=== PATIENT | male | born 1975 | race Caucasian/White ===

== ENCOUNTER 2019-04-02 05:55 | Day surgery (SDC) | payer OTHER, SELFPAY | END 2019-04-02 08:15 | disposition home or self-care (01) | PROVIDERS: Family Provider Nurse Practitioner; Visit Provider Specialist | DX: G56.01 Carpal tunnel syndrome, right upper limb (principal); I10 Essential (primary) hypertension; F32.9 Major depressive disorder, single episode, unspecified; Z82.49 Family history of ischemic heart disease and other diseases of the circulatory system; Z83.3 Family history of diabetes mellitus | CPT/HCPCS: 64721; J0690; J2001; J2704; J3490 ==

== ENCOUNTER → 2020-03-01 15:52 | Outpatient (BNVA) | payer SELFPAY | PROVIDERS: Family Provider Nurse Practitioner; PCP Nurse Practitioner; Visit Provider Nurse Practitioner Family | DX: Z20.828 Contact with and (suspected) exposure to other viral communicable diseases (principal) | CPT/HCPCS: 87635 ==

== ENCOUNTER 2020-12-14 12:09 | Outpatient (CLI) | payer SELFPAY ==
[2020-12-14 12:22] LABS: D Dimer 0.22 ug/mIFEU (0-0.59)
== END 2020-12-14 12:10 | disposition home or self-care (01) ==
PROVIDERS: PCP Nurse Practitioner; Visit Provider Nurse Practitioner Family
DX: R06.02 Shortness of breath (principal)
CPT/HCPCS: 85378

== ENCOUNTER 2024-06-04 07:16 | Day surgery (SDC) | payer OTHER, SELFPAY ==
[2024-06-04 07:34] VITALS: BP 143/81; PULSE 62; RESP 16; TEMP 36.5; O2SAT 97; BMI 28.0
[2024-06-04] MEDS: sodium chloride 0.9% 1,000 ML 30 ML IV (07:50)
--- NOTE | 2024-06-04 07:59 | ANES.PREANE2 ---
Pre-Anesthetic Assessment Height/Weight: Height 1.75 m Weight 86.183 kg Temp Pulse Resp BP Pulse Ox O2 Del Method 97.7 F 62 16 143/81 97 Room Air 06/04/24 07:34 06/04/24 07:34 06/04/24 07:34 06/04/24 07:34 06/04/24 07:34 06/04/24 07:34 Preop Diagnosis: GERD, Screen Operation Date: 06/04/24 08:15 Proposed Procedures p EGD 82551, [id number],G0121, Z12.11 R12(Not Applicable) - Shaquille Marsh MD s Colonoscopy(Not Applicable) - Shaquille Marsh MD Familial anesthetic complications: none Was Beta Lisy taken within 24 hours: N/A Was Clonidine taken within 24 hours: N/A Last intake: Intake Last Liquid Date 06/03/24 Last Liquid Time 22:00 Last Solid Date 06/01/24 Last Solid Time 19:50 Social Alcohol occasional ETOH. Exam alert, oriented x 3, clear to auscultation bilaterally and regular rate & rhythm Airway Mallampati: Class II Comments: Comments: intact Pulmonary None reported CV/HEM None reported None reported Hepatic None reported GI Gastroesophageal Reflux Disease Metabolic None reported Musc/skel None reported Neuropsych Anxiety Anesthetic Plan ASA status: 2 Risk of > 500 ml blood loss (7ml/kg in children): No Medications/Allergies Home Medications ?Medication ?Instructions ?Recorded ?Confirmed ?Last Taken ?Type sertraline 100 mg tablet 100 mg PO DAILY 04/02/19 05/30/24 05/30/24 History clonazepam 0.5 mg tablet 0.25 mg PO DAILY PRN Anxiety 03/01/20 05/30/24 Unknown History pantoprazole 40 mg tablet,delayed 40 mg PO DAILY 05/02/24 05/30/24 05/30/24 History release Allergies Allergy/AdvReac Type Severity Reaction Status Date / Time No Known Allergies Allergy Verified 06/04/24 08:03 [facility] Anesthesia Medical History Carpal tunnel syndrome, bilateral Social History Smoking and tobacco/nicotine status: current every day tobacco/nicotine user (chewing tob) Alcohol intake: current Alcohol intake frequency: few times a week Substance/Drug Use: never Data Anesthesia Cardiac Studies: No Data to Display
--- NOTE | 2024-06-04 08:09 | W.PM.OPSFHP ---
Same Day Surgery H&P Indication for Procedure/HPI DATE OF PROCEDURE: June 04, 2024 CHIEF COMPLAINT/INDICATIONFOR SURGICAL PROCEDURE: heartburn screening colonoscopy PREOP DIAGNOSIS: heartburn screening colonoscopy PLANNED PROCEDURE: Operation Date: 06/04/24 08:15 Proposed Procedures p EGD 93089, 58261,G0121, Z12.11 R12(Not Applicable) - Shaquille Marsh MD s Colonoscopy(Not Applicable) - Shaquille Marsh MD Medications/Allergies* Home Medications ?Medication ?Instructions ?Recorded ?Confirmed ?Type sertraline 100 mg tablet 100 mg PO DAILY 04/02/19 05/30/24 History clonazepam 0.5 mg tablet 0.25 mg PO DAILY PRN Anxiety 03/01/20 05/30/24 History pantoprazole 40 mg tablet,delayed 40 mg PO DAILY 05/02/24 05/30/24 History release Allergies/Adverse Reactions Allergy/AdvReac Type Severity Reaction Status Date / Time No Known Allergies Allergy Verified 06/04/24 08:03 Pertinent History/Comorbid Conditions* Medical History (Updated 04/17/19 @ 14:18 by Meli Magallon MD) Carpal tunnel syndrome, bilateral Social History Smoking and tobacco/nicotine status: current every day tobacco/nicotine user (chewing tob) Alcohol intake: current Alcohol intake frequency: few times a week Substance/Drug Use: never Pertinent Exam Findings alert, oriented x 3, clear to auscultation bilaterally, regular rate & rhythm and procedure specific exam findings abdomen soft, nt, nd Recommendations Surgery/Procedure today Coding Level of Care Code Acute Code for Chg Fwd
[2024-06-04 08:29] VITALS: BP 97/65; PULSE 70; RESP 16; TEMP 36.8; O2SAT 96
[2024-06-04 08:54] VITALS: BP 116/79; PULSE 61; RESP 16; O2SAT 97
--- NOTE | 2024-06-04 09:25 | ANE.PACU2 ---
Inpatient post-anesthesia follow up: Airway intact: Yes Vital signs: Temperature 98.2 F Pulse Rate 61 Respiratory Rate 16 Blood Pressure 116/79 Pulse Oximetry 97 Oxygen Delivery Me thod Room Air Oxygen Flow Rate 4 Fraction of Inspir ed Oxygen Hydration adequate: Yes Nausea and vomiting: No Pain level: 1 Mental status: Baseline
== END 2024-06-04 09:10 | disposition home or self-care (01) ==
PROVIDERS: PCP Family Medicine; Visit Provider Student in an Organized Health Care Education/Training Program
PROC: 0DJ08ZZ Inspection of Upper Intestinal Tract, Via Natural or Artificial Opening Endoscopic (ICD-10-PCS; principal; 2024-06-04 08:15)
PROC: 0DJD8ZZ Inspection of Lower Intestinal Tract, Via Natural or Artificial Opening Endoscopic (ICD-10-PCS; CPT 45378; 2024-06-04 08:15)
DX: Z12.11 Encounter for screening for malignant neoplasm of colon (principal); K57.30 Diverticulosis of large intestine without perforation or abscess without bleeding; K29.01 Acute gastritis with bleeding; K21.9 Gastro-esophageal reflux disease without esophagitis; Z79.899 Other long term (current) drug therapy; F17.220 Nicotine dependence, chewing tobacco, uncomplicated; K29.80 Duodenitis without bleeding
CPT/HCPCS: 43239; 45378; 88305; J2704; J7030